=== PATIENT | female | born 2000 | race Two or more races ===

== ENCOUNTER 2020-04-12 19:20 | Emergency (ER) | payer SELFPAY ==
--- NOTE | 2020-04-12 19:55 | EDM.PDOC ---
ED HPI GENERAL MEDICAL PROBLEM - General Chief Complaint: General Stated Complaint: HEADACHE DIZZY Time Seen by Provider: 04/12/20 19:34 Source of Information: Reports: Patient History Limitations: Reports: No Limitations - History of Present Illness INITIAL COMMENTS - FREE TEXT/NARRATIVE: The patient presents with a headache, lightheadedness, ear pain, sore throat and chills. This all started a week ago and is worse today. The headache is better but not the other symptoms. She has no medical problems. 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 She has no cough, congestion, runny nose or chest pain. She may feel a little short of breath at times. She does not smoke. Onset: Gradual Duration: Week(s): Location: Reports: Head, Other (throat) Quality: Reports: Ache Severity: Mild Improves with: Reports: None Worsens with: Reports: None Associated Symptoms: Reports: Fever/Chills. Denies: Chest Pain, Cough, Headach es, Nausea/Vomiting, Shortness of Breath - Related Data Allergies Allergy/AdvReac Type Severity Reaction Status Date / Time No Known Allergies Allergy Verified 04/12/20 19:33 Home Meds: Home Meds . [No Known Home Meds] 04/12/20 [History] Past Medical History - Past Health History Medical/Surgical History: Denies Medical/Surgical History Social & Family History - Tobacco Use Tobacco Use Status *Q: Never Tobacco User - Recreational Drug Use Recreational Drug Type: Reports: Marijuana/Hashish Recreational Drug Use Frequency: Rarely ED ROS GENERAL - Review of Systems Review Of Systems: See Below Constitutional: Reports: Chills. Denies: Fever HEENT: Reports: No Symptoms Respiratory: Reports: No Symptoms Cardiovascular: Reports: No Symptoms Endocrine: Reports: No Symptoms GI/Abdominal: Reports: No Symptoms : Reports: No Symptoms Musculoskeletal: Reports: No Symptoms ED EXAM, GENERAL - Physical Exam Exam: See Below Exam Limited By: No Limitations General Appearance: Alert, No Apparent Distress Ears: Normal External Exam, Normal Canal, Normal TMs Nose: Normal Inspection Throat/Mouth: Other (Mild oropharynx erythema) Head: Atraumatic, Normocephalic Neck: Normal Inspection Respiratory/Chest: No Respiratory Distress, Lungs Clear, Normal Breath Sounds Cardiovascular: Regular Rate, Rhythm, No Edema, No Murmur GI/Abdominal: Soft, Non-Tender, No Organomegaly, No Mass Back Exam: Normal Inspection Course - Vital Signs Last Recorded V/S: Last Vital Signs Temp 97.9 F 04/12/20 19:33 Pulse 80 04/12/20 19:33 Resp 16 04/12/20 19:33 BP 125/77 04/12/20 19:33 Pulse Ox 100 04/12/20 19:33 - Orders/Labs/Meds Orders: Active Orders 24 hr Category Date Time Status CORONAVIRUS COVID-19 PCR [facility] Stat Lab 04/12/20 20:02 Received CULTURE STREP A CONFIRMATION [RM] Stat Lab 04/12/20 20:02 Results STREP SCRN A RAPID W CULT CONF [RM] Stat Lab 04/12/20 20:02 Results - Re-Assessments/Exams Free Text/Narrative Re-Assessment/Exam: 04/12/20 19:56 I have checked her for COVID 19 and strep. 04/12/20 20:38 The strep is negative. I will discharge her home. Departure - Departure Time of Disposition: 20:40 Disposition: Home, Self-Care 01 Condition: Good Clinical Impression: Viral URI - Discharge Information *PRESCRIPTION DRUG MONITORING PROGRAM REVIEWED*: Not Applicable *COPY OF PRESCRIPTION DRUG MONITORING REPORT IN PATIENT LAY: Not Applicable Referrals: PCP,None [Primary Care Provider] - Forms: ED Department Discharge, ED Return to Work/School Form Additional Instructions: Quarantine until we know the results of the COVID 19 test. Drink plenty of water. Take motrin or tylenol for any fever or pain. Please return if you are worse. Sepsis Event Note (ED) - Evaluation Sepsis Screening Result: No Definite Risk - Focused Exam Vital Signs: Vital Signs Temp Pulse Resp BP Pulse Ox 04/12/20 19:33 97.9 F 80 16 125/77 100 - My Orders Last 24 Hours: My Active Orders 04/12/20 20:02 CORONAVIRUS COVID-19 PCR [facility] Stat CULTURE STREP A CONFIRMATION [RM] Stat STREP SCRN A RAPID W CULT CONF [RM] Stat - Assessment/Plan Last 24 Hours: My Active Orders 04/12/20 20:02 CORONAVIRUS COVID-19 PCR [facility] Stat CULTURE STREP A CONFIRMATION [RM] Stat STREP SCRN A RAPID W CULT CONF [RM] Stat
== END 2020-04-12 20:50 | disposition home or self-care (01) ==
LOC: JD.ED 19:20
DX: J06.9 Acute upper respiratory infection, unspecified (principal); Z20.828 Contact with and (suspected) exposure to other viral communicable diseases
CPT/HCPCS: 87081; 87430; 99282; 99283; U0002